=== PATIENT | female | born 1975 | race Caucasian/White ===

== ENCOUNTER → 2020-07-03 14:01 | Outpatient (CLI) | payer OTHER, SELFPAY ==
--- NOTE | ~2020-07-03 | MM_ITS ---
EXAMINATION: MM screening [facility] BI w derik HISTORY: Screening. TECHNIQUE: Craniocaudal and mediolateral oblique 3-D tomosynthesis images were obtained and synthetic 2-D images were generated. CAD analysis was submitted and interpreted. COMPARISON: No prior mammogram is available for comparison at this institution. BREAST PARENCHYMAL COMPOSITION: There are scattered areas of fibroglandular density. FINDINGS: Biopsy marker on the right; history of benign right breast biopsy. There is suggestion of bilateral breast masses. Bilateral diagnostic mammography and bilateral breas t ultrasound are recommended. IMPRESSION: 1. Suggestion of bilateral breast masses 2. Bilateral diagnostic mammography and bilateral breast ultrasound are recommended BI-RADS Category 0: Incomplete: Needs additional imaging evaluation. Reviewed, dictated and finalized at location A. IMPRESSION: 1. Suggestion of bilateral breast masses 2. Bilateral diagnostic mammography and bilateral breast ultrasound are recomme nded BI-RADS Category 0: Incomplete: Needs additional imaging evaluation.
== END ==
PROVIDERS: Visit Provider Obstetrics & Gynecology
DX: Z12.31 Encounter for screening mammogram for malignant neoplasm of breast (principal); R92.8 Other abnormal and inconclusive findings on diagnostic imaging of breast
CPT/HCPCS: 77063; 77067

== ENCOUNTER → 2020-07-21 14:09 | Outpatient (CLI) | payer OTHER, SELFPAY ==
--- NOTE | ~2020-07-21 | MMUS_ITS ---
EXAMINATION: MM diagnostic mammo BI, US breast BI complete HISTORY: Bilateral numerous masses noted on 07/13/2020 digital screening mammogram examination TECHNIQUE: Additional 3-D tomosynthesis images of both breasts were performed and synthetic 2-D image s were generated. CAD analysis was submitted and interpreted. High resolution complete bilateral gissel st ultrasound was performed. COMPARISON: 07/13/2020 bilateral digital screening mammogram FINDINGS: MAMMOGRAPHIC FINDINGS: Scattered bilateral circumscribed nodular densities are noted, measuring up to approximately 7.5 mm o n the right in the lower outer quadrant, up to approximately 4 mm on the left. ULTRASOUND: No suspicious solid lesion or suspicious shadowing of either breast is noted. Right breast: 7:00 4 cm from nipple: Septated 5.5 x 3.8 x 6.3 mm cyst Left breast: 12:00 3 cm from nipple: 2.8 x 3 mm cyst IMPRESSION: 1. No mammographic evidence of malignancy 2. Routine annual mammographic screening is recommended BI-RADS Category 2: Benign finding(s). Reviewed, dictated and finalized at location A. IMPRESSION: 1. No mammographic evidence of malignancy 2. Routine annual mammographic screening is recommended BI-RADS Category 2: Benign finding(s).
== END ==
PROVIDERS: Visit Provider Obstetrics & Gynecology
DX: R92.8 Other abnormal and inconclusive findings on diagnostic imaging of breast (principal)
CPT/HCPCS: 76641; 77066

== ENCOUNTER → 2022-01-20 12:35 | Outpatient (CLI) | payer OTHER, SELFPAY ==
--- NOTE | ~2022-01-20 | MM_ITS ---
EXAMINATION: MM screening [facility] BI w derik HISTORY: Screening mammogram TECHNIQUE: Craniocaudal and mediolateral oblique 3-D tomosynthesis images were obtained and synthetic 2-D images were generated. CAD analysis was submitted and interpreted. COMPARISON: 07/21/2020, 07/03/2020, 07/17/2018 BREAST PARENCHYMAL COMPOSITION: There are scattered areas of fibroglandular density. FINDINGS: A mass of the lower-outer right breast is decreased in size, consistent with a benign findi ng. No suspicious mass, calcification, or architectural distortion are identified in either breast to suggest malignancy. There has been no suspicious interval change. IMPRESSION: 1. No mammographic evidence of malignancy. 2. Recommend routine screening mammography in one year. BI-RADS Category 2: Benign finding(s). Reviewed, dictated and finalized at location A.
== END ==
PROVIDERS: PCP Nurse Practitioner Family; Visit Provider Obstetrics & Gynecology
DX: Z12.31 Encounter for screening mammogram for malignant neoplasm of breast (principal)
CPT/HCPCS: 77063; 77067

== ENCOUNTER 2024-02-08 06:42 | Day surgery (SDC) | payer OTHER, SELFPAY ==
[2023-12-15 10:37] VITALS: BMI 32.1
[2024-01-25 13:15] VITALS: BMI 31.1
[2024-02-08 07:41] VITALS: BP 134/82; PULSE 95; RESP 16; TEMP 37.2; O2SAT 100; BMI 29.7
--- NOTE | 2024-02-08 07:49 | PM.HPGS ---
History of Present Illness History of Present Illness Consent: Risks, benefits, and alternatives have been discussed and questions answered. Patient agrees to proceed with procedure. Chief complaint: Screening Neoplasm of the Colon Narrative: Beena Aly is a 48 year old female presents for screening colonoscopy. Patient has current weight appetite movements are normal. Patient denies abdominal pain. She has had no bleeding. Family history is noncontributory. Review of Systems Review of Systems: All systems reviewed & are unremarkable except as noted in HPI and below PMFSH Past Medical History Medical History (Updated 02/08/24 @ 07:51 by Torito Maya MD) Anxiety Arthritis Chronic knee pain Family history of type 2 diabetes mellitus Father and mother Family hx of colon cancer maternal great grandmother History of episiotomy Surgical History Surgical History History of hernia surgery History of lymph node excision under right arm Family History Family History Father Family history of diabetes mellitus in first degree relative Hypertension Mother Family history of diabetes mellitus in first degree relative Cancer of kidney Unknown Diabetes mellitus Grandparent Lung cancer Family history of diabetes mellitus in first degree relative Other Family history of allergic disorder Family history of malignant neoplasm Social History Social History Social History: 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 Lifelong non-smoker. Smoking status: Never smoker Alcohol intake: current Drinks per week: 1 Substance use: never Substance use type: does not use Lack of Transportation: YES Lack of Food: Never True Current Housing: I Have Housing Concerned About Future Housing: No Difficulty Paying Gas/Electric Bills: No Difficulty Paying for Meds: No Currently Unemployed: No Education: Bachelor's Degree Difficulty w/ Childcare or Family Care: No Living arrangements: with family Occupation/Education: other Additional occupation/education comments: Homemaker Gender identity (if verbalized by the patient): Female Sexual Orientation (if Verbalized by the Patient): Straight or Heterosexual Spiritual care concerns: No Agree to blood products: Yes Meds Home Medications and Allergies Home Medications Medication Instructions Recorded Confirmed Type multivitamin-ferrous 1 tablet PO DAILY 03/28/19 02/08/24 History fumarate-folic acid 18 mg-400 mcg tablet (Centrum) Allergies Allergy/AdvReac Type Severity Reaction Status Date / Time Penicillins AdvReac Mild passed out Verified 02/08/24 07:40 Exam Narrative: Physical exam reveals patient signs stable. HEENT exam is unremarkable. Patient is anicteric. Lungs are clear to auscultation and to percussion. His without murmur or extra sounds. Abdomen bowel sounds are present soft nontender with no organomegaly. Digital and external rectal exam is normal. Assessment and Plan Assessment and plan (1) Screen for colon cancer: Code(s): Z12.11 - Encounter for screening for malignant neoplasm of colon Status: Acute Assessment and Plan: Patient presents today for screening colonoscopy. She appears to be at average risk for colon polyps. Further recommendations may be given after endoscopy..
[2024-02-08] MEDS: LACTATED RINGERS 1,000 ML 150 ML IV CONT (07:53)
--- NOTE | 2024-02-08 08:46 | P.PNAN_ITS ---
Anes - Initial Pre Proc Eval Procedure: Operation Date: 02/08/24 09:00 Proposed Procedures p Screening Colonoscopy - Torito Maya MD Date/Time: 02/08/24 08:46 Surgeon: Torito Maya MD Pre Op Diagnosis: Screening Neoplasm of the Colon Patient Data Age: 48 Gender: F Height: 1.65 m Weight: 81 kg Last Vital Signs Temp 37.2 C 02/08/24 07:41 Pulse 95 02/08/24 07:41 Resp 16 02/08/24 07:41 BP 134/82 02/08/24 07:41 Pulse Ox 100 02/08/24 07:41 O2 Del Method Room Air 02/08/24 07:41 Allergies Allergy/AdvReac Type Severity Reaction Status Date / Time Penicillins AdvReac Mild passed out Verified 02/08/24 07:40 Home Medications Medication Instructions Recorded Confirmed Type multivitamin-ferrous 1 tablet PO DAILY 03/28/19 02/08/24 History fumarate-folic acid 18 mg-400 mcg tablet (Centrum) Patient hx anesthesia problems: none Family hx anesthesia problems: none Results Review: All pre-operative results and documents have been reviewed as part of the pre- operative evaluation. [facility] Past Medical History Medical History Anxiety Arthritis Chronic knee pain Family history of type 2 diabetes mellitus Father and mother Family hx of colon cancer maternal great grandmother History of episiotomy Surgical History Surgical History History of hernia surgery History of lymph node excision under right arm Family History Family History Father Family history of diabetes mellitus in first degree relative Hypertension Mother Family history of diabetes mellitus in first degree relative Cancer of kidney Unknown Diabetes mellitus Grandparent Lung cancer Family history of diabetes mellitus in first degree relative Other Family history of allergic disorder Family history of malignant neoplasm Social History Social History Social History: 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 Lifelong non-smoker. Smoking status: Never smoker Alcohol intake: current Drinks per week: 1 Substance use: never Substance use type: does not use Lack of Transportation: YES Lack of Food: Never True Current Housing: I Have Housing Concerned About Future Housing: No Difficulty Paying Gas/Electric Bills: No Difficulty Paying for Meds: No Currently Unemployed: No Education: Bachelor's Degree Difficulty w/ Childcare or Family Care: No Living arrangements: with family Occupation/Education: other Additional occupation/education comments: Homemaker Gender identity (if verbalized by the patient): Female Sexual Orientation (if Verbalized by the Patient): Straight or Heterosexual Spiritual care concerns: No Agree to blood products: Yes Anes - Eval Final PreProcedure Day of Procedure 02/08/24 08:46 Patient weight: overweight Heart: regular rate and rhythm Lungs: clear to auscultation Airway: Mallampati scale class II Neurological: alert and oriented Last oral intake: >/= 8 hours ASA classification: II Emergent: no Anesthetic plan: proceed Anesthesia type and monitoring: general GIVS Results Review: All pre-operative results and documents have been reviewed as part of the pre- operative evaluation. Informed Consent: The patient's anesthetic plan and its attendant risks and benefits were discussed with the patient/family/POA. Questions were solicited and answers provided to the satisfaction of the patient/family/POA.
[2024-02-08 09:16] VITALS: BP 118/89; PULSE 94; RESP 14; O2SAT 97
[2024-02-08 09:26] VITALS: BP 111/88; PULSE 85; RESP 14; O2SAT 98
[2024-02-08 09:36] VITALS: BP 118/79; PULSE 80; RESP 15; O2SAT 100
--- NOTE | 2024-02-08 12:56 | WPDANESPN ---
Anes - Prog Note Post-Op Date/Time: 02/08/24 12:56 Cardiovascular status: normal Respiratory status: normal Airway patency: baseline Mental status: baseline Post-Op hydration status: normal Vital Signs: Last Vital Signs Temp 37.2 C 02/08/24 07:41 Pulse 80 02/08/24 09:36 Resp 15 02/08/24 09:36 BP 118/79 02/08/24 09:36 Pulse Ox 100 02/08/24 09:36 O2 Del Method Room Air 02/08/24 09:36 Pain Score (VAS): 0 I/O: Intake & Output 02/07/24 02/08/24 02/08/24 23:59 07:59 15:59 Intake Total 250 Balance 250 Post-procedural complaints: none Patient Feedback: Patient satisfied with anesthetic care. Other Findings: Patient vital signs back to baseline. Patient denies nausea and vomiting. Patient's pain under control. Patient OK for discharge.
== END 2024-02-08 09:40 | disposition home or self-care (01) ==
PROVIDERS: PCP Family Medicine; Visit Provider Internal Medicine Gastroenterology
PROC: 0DJD8ZZ Inspection of Lower Intestinal Tract, Via Natural or Artificial Opening Endoscopic (ICD-10-PCS; CPT 45378; principal; 2024-02-08 09:00)
DX: Z12.11 Encounter for screening for malignant neoplasm of colon (principal); K57.30 Diverticulosis of large intestine without perforation or abscess without bleeding; K64.8 Other hemorrhoids
CPT/HCPCS: 45378

== ENCOUNTER 2024-02-27 12:04 | Outpatient (CLI) | payer OTHER, SELFPAY ==
--- NOTE | ~2024-02-27 | MM_ITS ---
EXAMINATION: MM screening [facility] BI w derik HISTORY: Screening TECHNIQUE: Craniocaudal and mediolateral oblique 3-D tomosynthesis images were obtained and synthetic 2-D images were generated. CAD analysis was submitted and interpreted. COMPARISON: Comparison to multiple prior studies sequentially, with oldest reviewed study dated 07/17. BREAST PARENCHYMAL COMPOSITION: Not dense: There are scattered areas of fibroglandular density. FINDINGS: No significant change to benign-appearing circumscribed 4 mm mass in the lower outer quadra nt of the right breast, middle third. There is no evidence of suspicious mass, calcification, or arch itectural distortion to suggest malignancy in either breast. There has been no suspicious interval ch adriel. IMPRESSION: 1. No mammographic evidence of malignancy. 2. Recommend routine screening mammography in one year. BI-RADS Category 2: Benign finding(s). Reviewed, dictated and finalized at location B. OFFICER
== END 2024-02-27 12:05 | disposition home or self-care (01) ==
LOC: MICIMG 12:05
PROVIDERS: PCP Obstetrics & Gynecology; Visit Provider Obstetrics & Gynecology
DX: Z12.31 Encounter for screening mammogram for malignant neoplasm of breast (principal)
CPT/HCPCS: 77063; 77067